=== PATIENT | female | born 1990 | race Caucasian/White ===

== ENCOUNTER 2021-06-29 13:23 | Emergency (ER) | payer OTHER ==
[~2021-06-29] VITALS: Ht 165.1 cm; Wt 91.2 kg
[2021-06-29] MEDS ORDERED: UNISOM50 MG PO (14:12)
[2021-06-29] MEDS ORDERED: PRENATAL 19 CH1 EACH PO (14:12)
[2021-06-29] MEDS ORDERED: REGLAN10 MG PO (19:21)
== END 2021-06-29 20:30 | disposition home or self-care (01) ==
LOC: ED 13:23
DX: O21.0 Mild hyperemesis gravidarum (principal); Z3A.01 Less than 8 weeks gestation of pregnancy; Z79.899 Other long term (current) drug therapy
CPT/HCPCS: 36415; 80053; 81001; 83735; 84702; 84703; 85025; 96374; 99284-25; J2765; J7030; J7042

== ENCOUNTER 2022-02-06 00:24 | Inpatient (IN) | payer OTHER ==
[~2022-02-06] VITALS: Ht 165.1 cm; Wt 98.4 kg
[~2022-02-06 00:24] MED LIST: PRENATAL 19 CH1 EACH PO; REGLAN10 MG PO; UNISOM50 MG PO
--- NOTE | 2022-02-06 20:59 | PR ---
[facility] [place] [facility] [address] [place] [address] Signed Progress Notes IP Datetime Report Generated by CPN: 02/06/2022 20:59 PROGRESS NOTES: [id number] Impression: Normal Progression of Labor Procedures: Sterile Vag Exam Plan: Continue Present Management Informed Consent Obtain: Vaginal Delivery Other Informed Consents: AROM VITAL SIGNS: [id number] Vital Signs: Reviewed; Within Normal Limits EXAM: [id number] Dilatation: 4.0 Effacement: 60 Station: -1 Contractions: q 2-4 min MEMBRANES: [id number] Comments: Pt seen and examined. Doing well. Epidural kindly placed by anesthesia. No complaints. Slow but consistent progress w/ labor as cervix significantly softer. No other concerns. Will start low dose pitocin FETUS A: [id number] FHR Baseline: 120 Variability: Moderate 6-25bpm Accelerations: 15X15 Decelerations: None FHR Category: Category I Presentation: Vertex Comments on Fetus A: No evidence of metabolic acidosis FETUS B: [id number] Signing Physician: Michelle Hall MD Copies: ~ *Electronically Signed* 02/06/222058 MICHELLE HALL MD PATIENT NAME: LAUREEN MUELLER PROGRESS NOTE DATE OF : 88 PHYSICIAN: MICHELLE HALL MD RPT #: [id number] REPORT IS CONFIDENTIAL AND NOT TO BE RELEASED WITHOUT AUTHORIZATION
--- NOTE | 2022-02-06 23:17 | PR ---
[facility] [address], [place] [address] Signed Progress Notes IP Datetime Report Generated by CPN: 02/06/2022 23:17 PROGRESS NOTES: [id number] Impression: Normal Progression of Labor Other Impressions: Slow progression of labor Procedures: Sterile Vag Exam Plan: Continue Present Management Informed Consent Obtain: Vaginal Delivery; Section Delivery Other Informed Consents: Pitocin augmentation per protocol VITAL SIGNS: [id number] Vital Signs: Reviewed; Within Normal Limits EXAM: [id number] Dilatation: 4.0 Effacement: 60 Station: -1 Contractions: q 2-4 min MEMBRANES: [id number] Comments: Pt seen and evaluated. Doing well. Called to pt room for recurrent late decelerations on pitocin w/ moderate variability and accelerations. Pitocin was halted and maternal repositioning initiated. Discussed overall reassuring status and pictocin protocol. Discussed inadequate contractions on IUPC. Will restart pitocin if able after period of Cat 1 tracing. Reviewed lack of cervical change, ROT positioning, adequate pelvis, and EFW. Reviewed plan of care w/ RN and pt. All questions answered FETUS A: [id number] FHR Baseline: 120 Variability: Moderate 6-25bpm Accelerations: 15X15 Decelerations: None FHR Category: Category I Presentation: Vertex Comments on Fetus A: No evidence of metabolic acidosis FETUS B: [id number] Signing Physician: Marisa Winkler DO Copies: ~ *Electronically Signed* 02/06/22 6652 MARISA WINKLER DO PATIENT NAME: LAUREEN MUELLER PROGRESS NOTE DATE OF : 88 PHYSICIAN: MARISA WINKLER DO RPT #: [id number] REPORT IS CONFIDENTIAL AND NOT TO BE RELEASED WITHOUT AUTHORIZATION
--- NOTE | 2022-02-07 00:57 | PR ---
[facility] [address], [place] [address] Signed Progress Notes IP Datetime Report Generated by YG: 02/07/2022 00:57 PROGRESS NOTES: [id number] Impression: Reassuring Heart Rate Other Impressions: Slow progression of labor Procedures: Sterile Vag Exam Plan: Tocolysis Informed Consent Obtain: Vaginal Delivery; Section Delivery Other Informed Consents: Pitocin augmentation per protocol VITAL SIGNS: [id number] Vital Signs: Reviewed; Within Normal Limits EXAM: [id number] Dilatation: 4.5 Effacement: 80 Station: -1 Contractions: q 2-4 min MEMBRANES: [id number] Comments: Pt seen and examined. Recurrent late decelerations noted despite maternal reposition and IVF bolus. Scalp stim yields acceleration ad moderate variability and accelerations noted throughout strip. Discussed FHT in detail w/ pt. Discussed noted cervical progress from last exam and w/ some dilation and noted effacement w/ rotation to MONISHA position. Discussed option for primary LTCS or tocolysis w/ terbutaline with continued trial of labor. Pt is agreeable to either but would prefer to avoid C/S if able. Given moderate variability and accelerations I believed this is appropriate, but that if FHT worsens would recommend C/S. Will start D5. Last glucose 95 FETUS A: [id number] FHR Baseline: 120 Variability: Moderate 6-25bpm Accelerations: 15X15 Decelerations: None FHR Category: Category I Presentation: Vertex Comments on Fetus A: No evidence of metabolic acidosis FETUS B: [id number] Signing Physician: Marisa Winkler DO *Electronically Signed* 02/07/22 0057 MARISA WINKLER DO PATIENT NAME: AMILAUREEN WARNER PROGRESS NOTE DATE OF : 88 PHYSICIAN: MARISA WINKLER DO RPT #: [id number] REPORT IS CONFIDENTIAL AND NOT TO BE RELEASED WITHOUT AUTHORIZATION
--- NOTE | 2022-02-07 04:02 | PR ---
[facility] [address], [place] [address] Signed Progress Notes IP Datetime Report Generated by CPJoe: 02/07/2022 04:02 PROGRESS NOTES: [id number] Impression: Normal Progression of Labor; Reassuring Heart Rate Other Impressions: Slow progression of labor Procedures: Sterile Vag Exam Plan: Augmentation Informed Consent Obtain: Vaginal Delivery; Section Delivery Other Informed Consents: Pitocin augmentation per protocol VITAL SIGNS: [id number] Vital Signs: Reviewed; Within Normal Limits EXAM: [id number] Dilatation: 5.0 Effacement: 90 Station: -1 Contractions: q 2-4 min MEMBRANES: [id number] Comments: Pt seen and examined. Doing well. Late decelerations resolved w/ terbutaline and FHT reassuring since. Pitocin was restarted and pt had one late deceleration and was discontinued, however Cat 1 tracing since. New FSE placed to hopefully elminate artifact in prior scalp electrode. Reviewed glucose levels. Will restartin pitocin and continue to monitor closely FETUS A: [id number] FHR Baseline: 120 Variability: Moderate 6-25bpm Accelerations: 15X15 Decelerations: None FHR Category: Category I Presentation: Vertex Comments on Fetus A: No evidence of metabolic acidosis FETUS B: [id number] Signing Physician: Marisa Winkler DO Copies: ~ *Electronically Signed* 02/07/22 0402 MARISA WINKLER DO PATIENT NAME: LAUREEN MUELLER PROGRESS NOTE DATE OF : 88 PHYSICIAN: MARISA WINKLER DO [facility] #: [id number] REPORT IS CONFIDENTIAL AND NOT TO BE RELEASED WITHOUT AUTHORIZATION
--- NOTE | 2022-02-07 05:52 | PR ---
[facility] [address], [place] [address] Signed Progress Notes IP Datetime Report Generated by CPN: 02/07/2022 05:52 PROGRESS NOTES: [id number] Impression: Normal Progression of Labor; Reassuring Heart Rate Other Impressions: Slow progression of labor Procedures: Sterile Vag Exam Plan: Anticipate Vaginal Delivery Informed Consent Obtain: Vaginal Delivery Other Informed Consents: Pitocin augmentation per protocol VITAL SIGNS: [id number] Vital Signs: Reviewed; Within Normal Limits EXAM: [id number] Dilatation: 9.5 Effacement: 100 Station: 0 Contractions: q 2-4 min MEMBRANES: [id number] Comments: Pt seen and examined. More uncomfortable and requesting rebolus of anesthesia. Few late decelerations in background of moderate variability noted, but pitocin halted. On recheck anterior lip noted, and heart tracing reassuring. Recommended pitocin off until epidural rebolused. Then will restart pitocin and start pushing once complete. Reviewed adequate pelvis, position (ASHLEY), and anticipate . Discussed indications for C/S if needed. All questions answered. FETUS A: [id number] FHR Baseline: 120 Variability: Moderate 6-25bpm Accelerations: 15X15 Decelerations: None FHR Category: Category I Presentation: Vertex Comments on Fetus A: No evidence of metabolic acidosis FETUS B: [id number] Signing Physician: Marisa Winkler DO Copies: ~ *Electronically Signed* 02/07/22 0580 MARISA WINKLER DO PATIENT NAME: LAUREEN MUELLER PROGRESS NOTE DATE OF : 88 PHYSICIAN: MARISA WINKLER DO RPT #: [id number] REPORT IS CONFIDENTIAL AND NOT TO BE RELEASED WITHOUT AUTHORIZATION
--- NOTE | 2022-02-08 13:09 | PR ---
[facility] [address] [place], [place] [address] Signed PP Progress Notes Datetime Report Generated by CPN: 02/08/2022 13:09 SUBJECTIVE: [id number] Pain: Within Normal Limits Nausea/Vomiting: Denies Flatus: Yes Bowel Movement: No Vital Signs: [id number] Vital Signs: Reviewed; Within Normal Limits Cardiovascular: Normal Respiratory: Normal Abdomen/Uterus: Normal Lochia: Normal Vulva/Perineum: Not Done Breasts: Not Done CVA Tenderness: Normal Extremities: Normal Incision: Not Applicable Progress: Normal Exam Comments: Fundus firm U-2 nontender IMPRESSION/PLAN/PROCEDURES: [id number] Impression: Normal Progression Plan: Discharge Progress Notes: Pt seen and examined. Doing well. Ambulating, voiding, nad toleraing full diet. Pain and lochia mimial. well. No fevers/chills or other concerns. Desires d/c home. Reviewed d/c instructions and medications in detail. All questions answered Signing Physician: Marisa Winkler DO Copies: ~ *Electronically Signed* 02/08/22 4803 MARISA WINKLER DO PATIENT NAME: LAUREEN MUELLER [facility] PROGRESS NOTE DATE OF : 88 PHYSICIAN: MARISA WINKLER DO RPT #: [id number] REPORT IS CONFIDENTIAL AND NOT TO BE RELEASED WITHOUT AUTHORIZATION
== END 2022-02-08 13:25 | disposition home or self-care (01) | DRG 807 ==
LOC: FBC 00:24
PROVIDERS: ADMIT Obstetrics & Gynecology; ATTEND Obstetrics & Gynecology
PROC: 10E0XZZ Delivery of Products of Conception, External Approach (ICD-10-PCS; principal; 2022-02-06)
PROC: 3E033VJ Introduction of Other Hormone into Peripheral Vein, Percutaneous Approach (ICD-10-PCS; 2022-02-06)
PROC: 10H07YZ Insertion of Other Device into Products of Conception, Via Natural or Artificial Opening (ICD-10-PCS; 2022-02-06)
PROC: 0KQM0ZZ Repair Perineum Muscle, Open Approach (ICD-10-PCS; 2022-02-06)
PROC: 10907ZC Drainage of Amniotic Fluid, Therapeutic from Products of Conception, Via Natural or Artificial Opening (ICD-10-PCS; 2022-02-06)
PROC: 3E0P7VZ Introduction of Hormone into Female Reproductive, Via Natural or Artificial Opening (ICD-10-PCS; 2022-02-06)
DX: O48.0 Post-term pregnancy (principal); Z37.0 Single live birth; O76 Abnormality in fetal heart rate and rhythm complicating labor and delivery; Z3A.39 39 weeks gestation of pregnancy; Z67.40 Type O blood, Rh positive; O70.1 Second degree perineal laceration during delivery; O24.420 Gestational diabetes mellitus in childbirth, diet controlled; O99.214 Obesity complicating childbirth; O99.344 Other mental disorders complicating childbirth; F41.9 Anxiety disorder, unspecified; Z20.822 Contact with and (suspected) exposure to COVID-19; Z87.891 Personal history of nicotine dependence
CPT/HCPCS: 36415; 85027; 86850; 86900; 86901; 87502; A9270; J1815; J2405; J2590; J2795; J3010; J3105; U0003

== ENCOUNTER 2022-08-25 11:37 | Emergency (ER) | payer OTHER ==
[~2022-08-25] VITALS: Ht 152.4 cm; Wt 0.0 kg
[2022-08-25] MEDS ORDERED: ONDANSETRON HCL4 MG PO (15:48)
[2022-08-25] MEDS ORDERED: HYDROCODON-ACE1 EA10 PO (15:48)
[2022-08-25] MEDS ORDERED: FLOMAX0.4 MG PO (15:48)
[2022-08-25 16:08] VITALS: BP 111/68
== END 2022-08-25 16:08 | disposition home or self-care (01) ==
LOC: ED 11:37
DX: N13.2 Hydronephrosis with renal and ureteral calculous obstruction (principal); Z87.891 Personal history of nicotine dependence; Z88.0 Allergy status to penicillin; Z79.899 Other long term (current) drug therapy
CPT/HCPCS: 36415; 74176; 80053; 81001; 83690; 84703; 85025; 96374; 99284-25; J1885